=== PATIENT | male | born 1995 | race Asian ===

== ENCOUNTER 2017-04-24 07:19 | Emergency (ER) | payer OTHER ==
[~2017-04-24] VITALS: Ht 177.8 cm; Wt 88.0 kg
[2017-04-24 07:24] VITALS: BP 135/90; PULSE 69; TEMP 36.6; O2SAT 99; Ht 177.8 cm; Wt 88.0 kg
[2017-04-24] MEDS ORDERED: RANITIDINE HCL 150 MG TAB PO STA (07:44)
--- NOTE | 2017-04-24 08:00 | EMERGENCY ROOM VISIT NOTE ---
ED Visit Note First contact with patient: 07:29 CHIEF COMPLAINT: Itchy skin rash since yesterday afternoon HISTORY OF PRESENT ILLNESS: Patient is an otherwise healthy 21-year-old male who presents to emergency department complaining that his girlfriend for evaluation of an itchy skin rash that developed yesterday afternoon. Patient states that he noticed the rash on his back, face and abdomen and this morning began to notice a few lesions on his arms. He notes that they are very itchy and he has difficulty sleeping. He has tried not to scratch the area. He has not taken any medications, nor performed any interventions for his symptoms. He has never had a rash similar to this previously. His live-in girlfriend reports that she was seen here about a week and half ago for similar symptoms and treated with Benadryl. They were unsure of the etiology of her rash, there was a suggestion that it was possibly viral. She notes a minor headache, otherwise denies any upper respiratory symptoms. Denies difficulty breathing or a feeling of swelling in the throat. The patient ate crab meat a couple of days ago, but has had crab before and has not had any problems. He denies any other new exposure to any potential allergens such as new medications, clothes, detergents, cosmetic products, or foods. He reports that he stayed at [email or web address] in [place] and [place] over the winter break, otherwise denies any foreign travel. REVIEW OF SYSTEMS: Review of systems as per HPI. All other systems reviewed were negative. 10 systems reviewed. PMH: Electronic medical records are reviewed and summarized as above/below. See Problem List. SOCIAL HISTORY: Patient is a college student originally from [place], who lives locally in an apartment with his girlfriend. He does not smoke. PHYSICAL EXAM: Vital Signs: Reviewed Nurse's notes. CONSTITUTIONAL: Patient is a well-appearing 21-year-old male who is awake and alert and in no acute distress. HEENT: Normocephalic, atraumatic. Pupils equal, round, reactive to light and accommodation. EOMs intact without nystagmus. Sclera are anicteric. Tympanic membranes intact, with normal landmarks. External canals are clear. Oral and nasopharynx are clear. Mucous membranes are moist. LUNGS: Clear to auscultation. HEART: Regular rate and rhythm. INTEGUMENTARY: The patient has an erythematous, raised rash, with lesions noted on his face and scalp, back, chest and abdomen, and a few spots also noted on his arms. They appear almost pustular in nature, with clear fluid, not overtly vesicular. Does not appear consistent with urticaria. Hands and feet are spared. He does not have any lesions below his waist. EMERGENCY DEPARTMENT COURSE: The patient was seen and evaluated as above. He was treated with Benadryl 50 mg and ranitidine 150 mg orally. Differential diagnoses entertained included urticaria, scabies, pityriasis rosea, viral eruption, among others. Given his significant other had symptoms recently, scabies was entertained, but involvement of the face and scalp are not supportive of this. The patient was encouraged to continue Benadryl and ranitidine, and to follow-up with [facility] or return to the emergency department for any worsening symptoms. He certainly does not appear to have any type of bacterial component which would require antibiotics. Medication reconciliation: I attest that I have personally reviewed the patient' s current medication list. Blood pressure screening : Patient was found to have normal blood pressure on screening and does not require follow-up. Current/Historical Medications No Active Prescriptions or Reported Meds Allergies Coded Allergies: No Known Allergies (Unverified , 04/24/17) Vital Signs Date Time Temp Pulse Resp B/P (MAP) Pulse Ox O2 Delivery O2 Flow Rate FiO2 04/24/17 07:24 36.6 69 16 135/90 99 Room Air Medications Administered Medications (Trade) Dose Ordered Sig/David Route Start Time Stop Time Status Last Admin Dose Admin Diphenhydramine HCl (Benadryl Cap) 50 mg NOW STAT PO 04/24/17 07:44 04/24/17 07:45 DC 04/24/17 07:57 50 MG Ranitidine HCl (zANTac TAB) 150 mg ONE STAT PO 04/24/17 07:44 04/24/17 07:45 DC 04/24/17 07:57 150 MG Departure Information Impression Primary Impression: Pruritic rash Prescriptions No Active Prescriptions or Reported Meds Referrals No Doctor, Assigned (PCP) Patient Instructions My [facility] Additional Instructions DO NOT drive, drink alcohol, operate machinery, or perform dangerous activities today. You were given medications in the ER that can affect your ability to safely function or operate a vehicle. Diphenhydramine(Benadryl) 25mg: use 25 to 50 mg as needed every six hours for swelling, itching, or hives. This medication is sedating and will cause drowsiness. Avoid alcohol, operating machinery or dangerous equipment, working on ladders or roofs, DRIVING, or situations where being under the influence may be dangerous. Zantac 75: Take two pills twice a day along with Benadryl as needed for swelling , itching, or hives. Most people know this for its affect on the stomach, but it also acts similar to, but less potent than Benadryl for allergic reactions. Both the Benadryl and the Zantac are available [id number]. Read all the package inserts or medication information paperwork provided. If you have any questions or concerns call your primary provider, pharmacist or the ER for assistance. Continue current medications. Return to the emergency department for worsening of your rash, swelling of your face, lips, tongue, or throat, difficulty breathing, vomiting, or as needed. Follow-up with your primary care physician in 2-3 days for a recheck of your current condition. Follow-up with dermatology if your symptoms are not improving to schedule a visit and further investigation.
[2017-04-25] MEDS ORDERED: VALA1TAB2 PO (03:01)
[2017-04-25] MEDS ORDERED: OXYC1TAB3 PO (03:01)
== END 2017-04-24 08:12 | disposition home or self-care (01) ==
LOC: C.EDB 07:21
DX: L29.9 Pruritus, unspecified (principal)

== ENCOUNTER 2017-04-25 02:39 | Emergency (ER) | payer OTHER ==
[~2017-04-25] VITALS: Ht 180.3 cm; Wt 88.1 kg
[2017-04-25 02:48] VITALS: BP 141/99; PULSE 70; TEMP 36.7; O2SAT 98; Ht 180.3 cm; Wt 88.1 kg
[2017-04-25] MEDS ORDERED: OXYCODONE HCL IR 5 MG TAB (IMMEDIATE RELEASE) PO STA (02:58)
--- NOTE | 2017-04-25 02:59 | EMERGENCY ROOM VISIT NOTE ---
History Report prepared by Pablito: Varghese Kelly Under the Supervision of: Dr. Neto Reyes M.D. First contact with patient: 02:52 Chief Complaint: RASH Stated Complaint: MIGHT BE CHICKEN POX,RASH History of Present Illness The patient is a 21 year old male who presents to the Emergency Room with complaints of worsening rash that began recently. Patient states the rash is located all over his body. He adds that the rash itches all over. He states that he does not remember if he had chicken pox as a child. He states he had "maybe just one" chicken pox vaccine. Patient's significant other had a similar rash 10 days ago. He denies nausea, vomiting, and trouble breathing. Source of History: patient Onset: Recent Position: other (Global) Timing: worsening Modifying Factors (Relieving): other (None) Associated Symptoms: No nausea, No vomiting Note: Patient denies trouble breathing. Review of Systems See HPI for pertinent positives & negatives. A total of 10 systems reviewed and were otherwise negative. Past Medical & Surgical Medical Problems: (1) No Known Active Medical Problems Family History No pertinent family history. Social History Smoking Status: Never Smoker Occupation Status: [employer] student Current/Historical Medications Scheduled Valacyclovir Hcl (Valtrex), 1,000 MG PO TID Scheduled PRN Oxycodone Immediate Rel Tab (Roxicodone Ir), 1-2 TAB PO Q4H PRN for Severe Pain Allergies Coded Allergies: No Known Allergies (Unverified , 04/24/17) Physical Exam Vital Signs Date Time Temp Pulse Resp B/P (MAP) Pulse Ox O2 Delivery O2 Flow Rate FiO2 04/25/17 02:48 36.7 70 16 141/99 98 Room Air Physical Exam GENERAL: Patient is uncomfortable appearing and in mild distress. HEENT: No acute trauma, normocephalic atraumatic, mucous membranes moist, no nasal congestion, no scleral icterus. NECK: No stridor, no adenopathy, no meningismus, trachea is midline. LUNGS: No dyspnea. Clear to auscultation and equal bilaterally. No wheeze, no rhonchi. HEART: Regular rate and rhythm. No murmurs, rubs, gallops appreciated. ABDOMEN: Soft, nontender, bowel sounds positive, no masses appreciated, no peritonitis. BACK: No midline tenderness, no CVA tenderness EXTREMITIES: Normal motion all extremities, no cyanosis, no edema. NEUROLOGIC: Alert and oriented, no acute motor or sensory deficits, no focal weakness, cranial nerves grossly intact. SKIN: Clear vesicular lesions on red base, varying ages, some blisters on face, back, chest, and upper arms, no cellulitic changes, no jaundice, no diaphoresis. Medical Decision & Procedures Medications Administered Medications (Trade) Dose Ordered Sig/David Route Start Time Stop Time Status Last Admin Dose Admin Oxycodone HCl (Roxicodone Immediate Rel Tab) 5 mg NOW STAT PO 04/25/17 02:58 04/25/17 02:59 DC 04/25/17 03:10 5 MG Valacyclovir HCl (Valtrex Tab) 1,000 mg NOW ONCE PO 04/25/17 03:00 04/25/17 03:01 DC 04/25/17 03:11 1,000 MG ED Course 0255: The patient was evaluated in room A12. A complete history and physical exam was performed. 0258: Oxycodone HCl 5mg PO 0300: Valtrex Tab 1000mg PO 0305: Reevaluated the patient. Discussed results and discharge instructions. He verbalized understanding and agreement. The patient is ready for discharge. Medical Decision Differential: Contact Dermatitis, Viral Exanthem, Urticaria, Allergic Reaction, SJS, Toxic Epidermal Necrolysis, Erythema Multiforme, Cellulitis, Scabies, HSV, Varicella, Zoster, Eczema, Staph Scalded Skin, Fungal, amongst other pathologies entertained. 21 male arrives for evaluation of worsening rash that initially was on face and has spread to much of body. Exam consistent with chicken pox and he admits his girlfriend had similar rash 10 days ago and that he only ever had one vaccination shot for varicella. Not dermatoma, no cellulitic findings, no allergic findings, and no mucous membrane involvement. He is not septic, has clear lungs and is otherwise well appearing. Given clearly uncomfortable will give limited number Rx Oxy IR for pain control. Stressed self quarantine and he lives in apartment not in a dorm. Given note to avoid class/testing for the next week. Discussed avoiding interactions with people in person until all vesicles are blistered. Stable and comfortable with this plan. [place] Drug Monitoring Program Search Results: no issues identified Medication Reconcilliation Current Medication List: was personally reviewed by me Blood Pressure Screening Patient's blood pressure: Elevated blood pressure Blood pressure disposition: Elevated BP felt to be situational Impression Primary Impression: Chicken pox Scribe Attestation The scribe's documentation has been prepared under my direction and personally reviewed by me in its entirety. I confirm that the note above accurately reflects all work, treatment, procedures, and medical decision making performed by me. Departure Information Dispostion Home / Self-Care Prescriptions Oxycodone Immediate Rel Tab (ROXICODONE IR) 5 Mg Tab 1-2 TAB PO Q4H Y for Severe Pain, #12 TAB Prov: Neto Reyes M.D. 04/25/17 Valacyclovir Hcl (VALTREX) 1 Gm Tab 1000 MG PO TID, #21 TAB Prov: Neto Reyes M.D. 04/25/17 [facility] Patient Instructions Chickenpox, My [facility] Additional Instructions Avoid interaction with people as much as possible over the next week until all blisters are scabbed over. You have received a narcotic pain medication prescription. These medications may cause drowsiness and should not be used with other sedative medications. Do not drive, drink alcohol, perform dangerous activities, nor make important decisions after taking these medications. rodent exterminator use or inappropriate use may lead to addiction.
[2017-04-25] MEDS ORDERED: VALA1TAB2 PO (03:01)
[2017-04-25] MEDS ORDERED: OXYC1TAB3 PO (03:01)
== END 2017-04-25 03:18 | disposition home or self-care (01) ==
LOC: C.EDB 02:40 → C.EDA 03:18
DX: B01.9 Varicella without complication (principal)